=== PATIENT | female | born 1985 | race Caucasian/White ===

== ENCOUNTER 2019-03-12 13:32 | Emergency (ER) | payer OTHER, SELFPAY ==
[2019-03-12 13:34] VITALS: BP 143/87; PULSE 104; RESP 16; TEMP 36.7; O2SAT 99; BMI 26.3
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
[2019-03-12 14:19] VITALS: RESP 15
== END 2019-03-12 14:20 | disposition home or self-care (01) ==
LOC: ED 14:08
PROVIDERS: Emergency Provider Emergency Medicine; Family Provider Internal Medicine; PCP Internal Medicine
DX: S19.9XXA Unspecified injury of neck, initial encounter (principal); F17.200 Nicotine dependence, unspecified, uncomplicated; Y04.2XXA Assault by strike against or bumped into by another person, initial encounter; Y93.89 Activity, other specified; Y92.89 Other specified places as the place of occurrence of the external cause; Y99.8 Other external cause status
CPT/HCPCS: 99282

== ENCOUNTER 2019-10-06 10:51 | Emergency (ER) | payer OTHER, SELFPAY ==
[2019-10-06 10:51] VITALS: BP 111/73; PULSE 119; RESP 18; TEMP 36.4; O2SAT 97; BMI 28.1
--- NOTE | 2019-10-06 11:16 | ED.VIS.GEN ---
History of Present Illness Chief Complaint: General Illness Detail of Chief Complaint: vomiting Informant: Patient Onset: Days - 4- Context: Gradual Onset Timing: Continuous Quality: nonbilious, nonbloody Current Severity: Severe Maximum Severity: Severe Worsened by: eating or drinking fluids Relieved by: nothing Associated Symptoms: diarrhea initially, but that resolved. cough x 2wks. subj fevers/chills. Narrative: Patient also feeling lightheaded, no near syncope or syncope. Feeling malaised. She is still able to get around. Saw her doctor yesterday for the same thing, had some tests done that was blood and urine, she does not know any of the specifics. They called her today and she was vomiting a lot overnight having difficulty keeping down fluids so they advised that she come to the emergency department. She denies any recent travel out of the area. She denies being in contact with anybody with known coronavirus infection, she presents during [facility] [place] [address] emergency declaration. She is a little upper abdominal soreness from vomiting but otherwise no abdominal pain. No chest pain or shortness of breath. Her cough is occasionally productive of some yellow or light brown sputum, no blood. No leg pain or swelling. No history of DVT or PE, no medical history she is healthy. Denies . No vaginal symptoms. Denies any suspicion for food poisoning. Past Medical History - Allergies and Home Meds Allergies/Adverse Reactions: Allergies No Known Allergies Allergy (Verified 10/06/19 10:54) Primary Care Physician: Nini Rutledge MD [Primary Care Provider] - Past Medical History: None Surgical History: - - Ovarian cyst Smoking Status: Current every day smoker Drugs: None Review of Systems General: Reports: Chills, Fever, Malaise, Subjective. Denies: Sweats Eyes: Denies: Visual changes - bilaterally, Diplopia ENT: Denies: Bilateral ear pain, Rhinorrhea, Sore throat Cardiovascular: Denies: Chest pain, Palpitations Respiratory: Reports: Cough, Sputum. Denies: Dyspnea, Dyspnea on exertion, Orthopnea Gastrointestinal: Reports: Nausea, Vomiting, Diarrhea - Resolved. See HPI.. Denies: Abdominal pain, Melena, Hematochezia Genitourinary: Reports: - - Decreased urination.. Denies: Dysuria, Hematuria, Frequency Musculoskeletal: Denies: Neck pain, Back pain, Swelling, Extremity Pain Skin: Denies: Rash, Wounds Neurological: Denies: Headache, Weakness, Numbness Physical Exam Vital Signs/Narrative: Vital Signs Temp Pulse Resp BP Pulse Ox 10/06/19 10:51 97.6 F L 119 H 18 111/73 97 Inital Vital Signs reviewed: Yes General: Well nourished, Well developed, No Acute Distress Head: Normocephalic, Atraumatic Eyes: Perrl, EOMI ENT: Moist mucous membranes, No rhinorrhea, TM's clear Neck: Supple, Nontender, No lymphadenopathy Cardiovascular: Regular rate, Regular rhythm, No murmurs, Tachycardia - Mild Respiratory: No distress, CTA bilaterally, Chest nontender Abdomen: Soft, Nontender, Nondistended, Normal bowel sounds Back: Nontender, Normal Inspection. Negative for: CVA tenderness Extremities: Nontender, No edema Skin: Normal color, No rash, No Trauma Neurological: Alert, Oriented x3, Cranial nerves II-XII grossly intact, Normal Strength, Normal Sensation Psychological: Normal affect, Normal Mood Diagnostic/Tx/Re-eval Impressions Chest X-Ray 10/06/19 12:40 IMPRESSION: Normal x-ray examination of the chest. Electronically Signed: Horacio Sheron, at 13:07 EDT , Service support , 10/06/19 12:40 Chest 1 View (Portable) [RAD] Stat Laboratory Results 10/06/19 10/06/19 10/06/19 12:00 12:00 13:40 WBC 9.8 RBC 5.16 Hgb 16.2 H Hct 48.1 H MCV 93.2 MCH 31.4 MCHC 33.7 RDW Std Deviation 39.8 RDW Coeff of Jarvis 11.5 L Plt Count 204 MPV 9.6 Immature Gran % (Auto) 0.300 Neut % (Auto) 71.8 H Lymph % (Auto) 21.6 [place] % (Auto) 5.3 Eos % (Auto) 0.7 Baso % (Auto) 0.3 Absolute Neuts (auto) 7.1 Absolute Lymphs (auto) 2.12 Nucleated RBC % 0 Sodium 140 Potassium 4.0 Chloride 104 Carbon Dioxide 28.0 Anion Gap 8 BUN 14 Creatinine 0.72 Estim Creat Clear Calc 109.08 Est GFR (MDRD) Af Amer 120 Est GFR (MDRD) Non-Af 99 BUN/Creatinine Ratio 19.4 Glucose 85 Calcium 9.6 Troponin I < 0.015 Urine Color Urine Clarity Urine pH Ur Specific [place] Urine Protein Urine Glucose (UA) Urine Ketones Urine Occult Blood Urine Nitrite Urine Bilirubin Urine Urobilinogen Ur Leukocyte Esterase Urine RBC Urine WBC Ur Squamous Epith Cells Amorphous Sediment Urine Bacteria Urine Mucus Urine Test Negative 10/06/19 13:40 WBC RBC Hgb Hct MCV MCH MCHC RDW Std Deviation RDW Coeff of Jarvis Plt Count MPV Immature Gran % (Auto) Neut % (Auto) Lymph % (Auto) [place] % (Auto) Eos % (Auto) Baso % (Auto) Absolute Neuts (auto) Absolute Lymphs (auto) Nucleated RBC % Sodium Potassium Chloride Carbon Dioxide Anion Gap BUN Creatinine Estim Creat Clear Calc Est GFR (MDRD) Af Amer Est GFR (MDRD) Non-Af BUN/Creatinine Ratio Glucose Calcium Troponin I Urine Color Yellow Urine Clarity Sl. Cloudy Urine pH 8.0 Ur Specific [place] 1.015 Urine Protein 15 H Urine Glucose (UA) Normal Urine Ketones 150 H Urine Occult Blood 25 H Urine Nitrite Negative Urine Bilirubin Negative Urine Urobilinogen 8 H Ur Leukocyte Esterase 25 H Urine RBC 0-5 SEEN Urine WBC 0-5 SEEN Ur Squamous Epith Cells 0-5 SEEN Amorphous Sediment 1+ PHOS Urine Bacteria 1+ Urine Mucus 0 SEEN Urine Test - Medical Decision Making Patient was treated with a liter of IV fluid and IV Zofran. She is feeling better on reevaluation tolerating oral fluids. Her labs are reassuringly unremarkable. Her hemoglobin is a little high over 16, this may be due to to some mild dehydration. She does not have significant prerenal azotemia. Urine is unremarkable showing traces of several tests, is negative, chest x-ray unremarkable. She is feeling better and I think she is stable for discharge home. This is foodborne illness, supportive care and hydration would be advised. Since she is no longer having diarrhea there would be no way to definitively test for that and rule it in or out. Advised follow-up with her doctor if she is not feeling any better over the weekend, she is asking for something different for nausea since she was trying some leftover Zofran at home and it was not helping. Gave her a Phenergan dose due to some residual nausea and a prescription for that as well as a work note. ED Disposition - Plan for ED Patient: Disposition: Home or Assisted Living Diagnosis: Vomiting, Mild dehydration Instructions: ED Dehydration Adult, ED Nausea Vomiting Adult Prescriptions: proMETHazine tablet [Phenergan tablet] 25 mg PO Q4H PRN PRN #20 tab PRN Reason: Nausea Transmission Status: Pending to [id number] Referrals: Nini Rutledge MD [Primary Care Provider] - 3-5 Days if not improving
[2019-10-06 12:11] LABS: Absolute Lymphocyte Count 2.12 X10^3/uL (0.83-4.51); Absolute Neutrophil Count 7.1 X10^3/uL (2.0-7.7); Basophil# 0.03 X10^3/uL; Basophil% 0.3 % (0-1); Eosinophil# 0.07 X10^3/uL; Eosinophils% 0.7 % (0-5); Hematocrit 48.1 % (37-47); Hemoglobin 16.2 g/dL (12.0-15.0); Lymphocyte # 2.12 X10^3/ul (4.0); Lymphocyte % 21.6 % (19-41); Mean Corp Hgb Conc 33.7 g/dL (32-36); Mean Corpuscular Hgb 31.4 pg (27.0-32.0); Mean Corpuscular Volume 93.2 fL (81-99); Mean Platelet Vol. 9.6 fl (6.2-12.0); Monocyte# 0.52 X10^3/uL; Monocyte% 5.3 % (0-10); NRBC Flagged by Analyzer 0 % (0-5); Neutrophil # 7.06 X10^3/uL (2.7-7.7); Neutrophil % 71.8 % (47-70); Platelet Count 204 K/mm3 (150-450); RBC Distribution Width CV 11.5 % (11.6-14.6); RBC Distribution Width SD 39.8 fl (35.1-43.9); Red Blood Count 5.16 M/mm3 (4.2-5.4); White Blood Count 9.8 K/mm3 (4.4-11.0)
[2019-10-06 12:23] VITALS: BP 111/73; PULSE 119; RESP 18; TEMP 36.4; O2SAT 97
[2019-10-06] MEDS: 0.9% Normal Saline 1,000 ML 999 ML IV (12:25)
[2019-10-06] MEDS: Ondansetron 4 MG/2 ML Vial IV (12:26)
[2019-10-06 12:27] LABS: Anion Gap 8 (5-15); BUN 14 mg/dL (7-18); BUN/Creat Ratio 19.4 RATIO (10-20); Calcium,Total 9.6 mg/dL (8.5-10.1); Chloride 104 mmol/L (98-107); Creatinine, Serum 0.72 mg/dL (0.55-1.02); EST Glomerular Filtration Rate 99 mL/min (>60); Est Glom Filt Rate - Afr Amer 120 mL/min (>60); Estimated Creatinine Clearance 109.08 ml/min; Glucose 85 mg/dL (74-106); Sodium Level 140 mmol/L (136-145)
--- NOTE | 2019-10-06 12:40 | RAD_ITS ---
STUDY: X-RAY CHEST REASON FOR EXAM: Female, 33 years old. NAUSEA, VOMITING, FATIGUE, COUGH, CHILLS, HEADACHE AND FEVER x4 DAYS TECHNIQUE: Single AP portable view of the chest. COMPARISON: Comparison is made with prior examination dated June 01, 2013. FINDINGS: EKG electrodes are seen. The lungs are clear and expanded. There is no demonstrated pleural abnormality. Normal size heart. Normal mediastinum and vernon. Normal visualized pulmonary arteries. Normal visualized aortic arch and descending thoracic aorta. Normal visualized thoracic spine. Normal visualized ribs, clavicles, and shoulders. There is no demonstrated abnormality of the visualized soft tissue structures of the upper abdomen. RAD/Chest 1 View (Portable) IMPRESSION: Normal x-ray examination of the chest. Electronically Signed: Horacio Holbrook, at 13:07 EDT , Service support ,
[2019-10-06 13:07] VITALS: BP 105/68; PULSE 64; RESP 14; O2SAT 96
[2019-10-06 13:56] LABS: Mucous, Urine 0 SEEN /hpf (<or=2+)
[2019-10-06 14:06] LABS: Internal QC Validated? YES +Cl - CLEAR BKGD; Pregnancy, Urine Negative Negative
[2019-10-06 14:11] LABS: Color, Urine Yellow (Yellow); Glucose, Dipstick Normal (Normal); Leukocyte Esterase-Dipstick 25 /ul (Negative); Nitrite-Dipstick Negative (Negative); Occult Blood-Urine 25 /ul (Negative); Protein-Dipstick 15 mg/dl (Negative); Specific Gravity, Urine 1.015 (1.002-1.030); Urine Bilirubin Dipstick Negative (Negative); Urine Clarity Sl. Cloudy (Clear); Urine Urobilinogen 8 mg/dl (Normal)
[2019-10-06 14:12] VITALS: PULSE 63; RESP 12; O2SAT 96
[2019-10-06 14:21] LABS: Ketone-Dipstick 150 mg/dl (Negative)
[2019-10-06 14:23] LABS: Squamous Epithelial Cells - UA 0-5 SEEN /hpf (5-10)
[2019-10-06 14:24] LABS: Amorphous Sediment 1+ PHOS; Bacteria 1+ /hpf (None Seen); Red Blood Cells-Urine 0-5 SEEN /hpf (0-5); White Blood Cells 0-5 SEEN /hpf (0-5)
[2019-10-06] MEDS: proMETHazine 25 MG Tablet PO (14:52)
== END 2019-10-06 14:54 | disposition home or self-care (01) ==
PROVIDERS: Emergency Provider Emergency Medicine; PCP Internal Medicine
DX: E86.0 Dehydration (principal); R11.2 Nausea with vomiting, unspecified; F17.200 Nicotine dependence, unspecified, uncomplicated
CPT/HCPCS: 71045; 80048; 81001; 81025; 84484; 85025; 96361; 96374; 99284; J7030; J2405

== ENCOUNTER 2020-11-06 16:58 | Emergency (ER) | payer MEDICAID, SELFPAY ==
[2020-11-06 17:00] VITALS: BP 113/73; PULSE 97; RESP 16; TEMP 36.2; O2SAT 97; BMI 23.3
[2020-11-06] MEDS: Smz/Tmp Ds Tablet 1 TABLET PO (18:08)
[2020-11-06] MEDS: Cephalexin 250 MG Capsule 500 MG PO (18:08)
--- NOTE | 2020-11-06 20:53 | EX.ED.DYSGE1 ---
HPI History of Present Illness Chief Complaint: Lower Extremity Injury Narrative Narrative: 35-year-old female presenting with left foot erythema and swelling. She states she was on a table the other day at work and slipped and fell scratching the back of her foot. Since that time she has had some redness which is spread around her foot. There are some mild swelling. She states this is very painful. She is able to ambulate. Patient has not had any systemic signs or symptoms. Patient went to urgent care and was sent to the ER for evaluation. PFSH PFSH Home Medications bacitracin 1 applic TOPICAL BID #30 g 11/06/20 [Rx Last Taken Unknown] cephalexin 500 mg PO Q6 #40 capsule 11/06/20 [Rx Last Taken Unknown] sulfamethoxazole-trimethoprim [Bactrim DS] 1 tab PO Q12H #20 tab 11/06/20 [Rx Last Taken Unknown] Allergy/AdvReac Type Severity Reaction Status Date / Time varenicline [From Chantix] Allergy Other Verified 11/06/20 17:00 amoxicillin AdvReac Nausea Verified 11/06/20 17:00 Social History Smoking Status: Current every day smoker tobacco type: cigarettes ROS ROS ED Constitutional Constitutional ED: Denies chills, fever(s) or subjective Eyes Eyes: Denies blurry vision or change in vision ENT ENT ED: Denies rhinorrhea or sore throat Cardiovascular Cardiovascular: Denies chest pain or palpitations Respiratory/Chest Respiratory/Chest: Denies cough or dyspnea Gastrointestinal Gastrointestinal: Denies abdominal pain or nausea Genitourinary Genitourinary ED: Denies dysuria or hematuria Integumentary Reports other Details: Erythema and rash over right foot. ; Denies abscess Neurologic Neurologic: Denies headache(s) or weakness EXAM Physical Exam Const Vital Signs: 11/06/20 17:00 Temperature 97.1 F L Temperature Source Temporal Pulse Rate 97 Respiratory Rate 16 Blood Pressure 113/73 Blood Pressure Mean 86 Pulse Ox 97 Oxygen Delivery Method Room Air HEENT Reports moist mucous membranes Negative for trauma Eyes PERRL and EOMs intact bilaterally Resp normal respiratory effort and clear to auscultation bilaterally Cardio regular rate and regular rhythm Neuro oriented x3 Sensorium / Orientation: alert Skin Skin Narrative: Superficial abrasion over the right posterior heel with mild erythema and swelling adjacent to this area. There is no significant induration. No bony tenderness. MDM MDM MDM Narrative Medical decision making narrative: Patient presents for cellulitic change on her foot. She was sent from urgent care because they felt she needed blood work. She has not been on antibiotics yet. Her vital signs are stable and she is afebrile. She has no systemic signs or symptoms. I do not believe she needs blood work and imaging. Patient will be started on antibiotics and given return precautions. Dressing was placed over the patient's wound and she is stable for discharge. Impression: 1. Cellulitis right foot Discharge Plan Triage Chief Complaint: Lower Extremity Injury ED Provider: Fredrick Galeana Dx/Rx/DC Orders Instructions: Cellulitis Prescriptions: New sulfamethoxazole-trimethoprim [Bactrim DS] 800-160 mg tablet 1 tab PO Q12H Qty: 20 RF: 0 cephalexin 500 mg capsule 500 mg PO Q6 Qty: 40 RF: 0 bacitracin 500 unit/gram ointment 1 applic topical BID Qty: 30 RF: 0 Primary Care Provider: Nini Rutledge Referrals: Nini Rutledge MD [Primary Care Provider] - Disposition Disposition: Home, Self Care Discharge Date/Time: 11/06/20 18:20
== END 2020-11-06 18:20 | disposition home or self-care (01) ==
PROVIDERS: Emergency Provider Student in an Organized Health Care Education/Training Program; PCP Internal Medicine
DX: L03.115 Cellulitis of right lower limb (principal); F17.210 Nicotine dependence, cigarettes, uncomplicated
CPT/HCPCS: 99283

== ENCOUNTER 2021-01-03 16:27 | Inpatient (IN) | payer MEDICAID, SELFPAY ==
[2021-01-03 16:28] VITALS: BP 120/78; PULSE 86; RESP 18; TEMP 36.3; O2SAT 99; BMI 23.3
--- NOTE | 2021-01-03 18:02 | EDS_ITS ---
HPI History of Present Illness Chief Complaint: Substance Abuse Informant: patient and friend Onset/Context/Timing Onset: Today Context: Gradual Onset Timing: Continuous Worsened by: Nothing Relieved by: Nothing Associated Symptoms Associated Symptoms: Positive for vomiting*, diarrhea* and fever*; Negative for seizure, tremor, palpatations, suicidal ideation and homicidal ideation Narrative Narrative: Patient presents requesting detox from fentanyl. Patient admits to using IV fentanyl. Patient states she also snorts fentanyl. Patient states she uses approximately 1 g/day. Patient states her last use was approximately 2 hours prior to arrival. Patient states she went to detox proximally 1-1/2 years ago in [place]. Patient admits to some vomiting and diarrhea. Patient admits to subjective fevers. Patient states she also uses IV methamphetamine. [facility] Medical History (Updated 01/03/21 @ 19:[address] Alexander Gonzalez DO) Drug abuse Home Medications bacitracin 1 applic TOPICAL BID #30 g 11/06/20 [Rx Last Taken Unknown] cephalexin 500 mg PO Q6 #40 capsule 11/06/20 [Rx Last Taken Unknown] sulfamethoxazole-trimethoprim [Bactrim DS] 1 tab PO Q12H #20 tab 11/06/20 [Rx Last Taken Unknown] Allergy/AdvReac Type Severity Reaction Status Date / Time varenicline [From Chantix] Allergy Other Verified 01/03/21 16:28 amoxicillin AdvReac Nausea Verified 01/03/21 16:28 Surgical History (Updated 01/03/21 @ 18:[address] Alexander Gonzalez DO) Hx of tonsillectomy Social History Smoking Status: Current every day smoker tobacco type: cigarettes ROS ROS ED Constitutional Constitutional ED: Reports fever(s) and subjective; Denies chills Eyes Eyes: Reports blurry vision; Denies diplopia ENT ENT ED: Denies rhinorrhea or sore throat Cardiovascular Cardiovascular: Denies chest pain or palpitations Respiratory/Chest Respiratory/Chest: Denies cough or dyspnea Gastrointestinal Gastrointestinal: Reports nausea and vomiting Genitourinary Genitourinary ED: Denies dysuria or hematuria Musculoskeletal Musculoskeletal: Denies back pain or neck pain Integumentary Denies abscess or rash Neurologic Neurologic: Denies headache(s) or weakness Allergic/Immunologic Allergic/Immunologic ED: Denies mouth swelling or urticaria EXAM Physical Exam Const Vital Signs: 01/03/21 16:28 01/03/21 19:11 Temperature 97.3 F L Temperature Source Temporal Pulse Rate 86 Respiratory Rate 18 14 Blood Pressure 120/78 Blood Pressure Mean 92 Pulse Ox 99 Oxygen Delivery Method Room Air Positive well nourished, well developed and unkempt General Appearance ED: unkempt and well developed HEENT Reports moist mucous membranes Neck supple and no JVD Resp normal respiratory effort and clear to auscultation bilaterally Cardio regular rate and regular rhythm GI soft to palpation, non-tender and non-distended Neuro oriented x3, CN's II-XII intact bilaterally and no sensory deficits noted Sensorium / Orientation: alert Psych Appearance: unkempt MDM MDM MDM Narrative Medical decision making narrative: CBC and comprehensive metabolic profile were within normal limits. Serum alcohol level was normal. Lipase was normal. Serum hCG was negative. Urine toxin was ordered and is pending. Case was discussed with the hospitalist. She will admit the patient for detox. Patient understood and was agreeable with the plan. All questions were answered. Lab Data Attestation: I reviewed the patient's lab results. Labs: Laboratory Results - last 24 hr 01/03/21 01/03/21 01/03/21 18:40 18:40 18:40 WBC 5.3 RBC 4.00 L Hgb 11.9 L Hct 37.2 MCV 93.0 MCH 29.8 MCHC 32.0 RDW Std Deviation 42.4 RDW Coeff of Jarvis 12.3 Plt Count 172 MPV 9.5 Immature Gran % (Auto) 0.000 Neut % (Auto) 37.6 L Lymph % (Auto) 53.4 H [place] % (Auto) 6.7 Eos % (Auto) 1.7 Baso % (Auto) 0.6 Absolute Neuts (auto) 2.0 Absolute Lymphs (auto) 2.81 Nucleated RBC % 0 Sodium 141 Potassium 4.0 Chloride 107 Carbon Dioxide 30.0 Anion Gap 4 L BUN 17 Creatinine 0.84 Estim Creat Clear Calc 91.77 Est GFR (MDRD) Af Amer 99 Est GFR (MDRD) Non-Af 82 BUN/Creatinine Ratio 20.1 H Glucose 149 H Calcium 8.5 Total Bilirubin 0.20 AST 13 L ALT 23 Alkaline Phosphatase 68 Total Protein 6.8 Albumin 3.7 Globulin 3.1 Albumin/Globulin Ratio 1.2 Lipase 29 L Serum , Qual Ethyl Alcohol < 3.0 01/03/21 18:40 WBC RBC Hgb Hct MCV MCH MCHC RDW Std Deviation RDW Coeff of Jarvis Plt Count MPV Immature Gran % (Auto) Neut % (Auto) Lymph % (Auto) [place] % (Auto) Eos % (Auto) Baso % (Auto) Absolute Neuts (auto) Absolute Lymphs (auto) Nucleated RBC % Sodium Potassium Chloride Carbon Dioxide Anion Gap BUN Creatinine Estim Creat Clear Calc Est GFR (MDRD) Af Amer Est GFR (MDRD) Non-Af BUN/Creatinine Ratio Glucose Calcium Total Bilirubin AST ALT Alkaline Phosphatase Total Protein Albumin Globulin Albumin/Globulin Ratio Lipase Serum , Qual NEGATIVE Ethyl Alcohol Treatment and Re-Evaluation Vital Sign Attestation:: Vital signs were reviewed prior to admission. They are stable. Discharge Plan Triage Chief Complaint: Substance Abuse ED Provider: Alexander Gonzalez Dx/Rx/DC Orders Clinical Impression: Opiate withdrawal Prescriptions: No Action sulfamethoxazole-trimethoprim [Bactrim DS] 800-160 mg tablet 1 tab PO Q12H Qty: 20 RF: 0 cephalexin 500 mg capsule 500 mg PO Q6 Qty: 40 RF: 0 bacitracin 500 unit/gram ointment 1 applic topical BID Qty: 30 RF: 0 Primary Care Provider: Care Physician,No Primary Referrals: Care Physician,No Primary [Primary Care Provider] - Disposition Disposition: Acute Care [facility]
--- NOTE | 2021-01-03 18:30 | CM.ED ---
Addendum entered by Ebony Oates 01/03/21 20:45: Call to Treatment NavigatorKeila. Updated on patient's admission to [facility]. Keila to be in tomorrow to complete assessments. Original Note: SOCIAL WORK Referral Source: Self-referral Reason for Consult: Substance Abuse- detox from fentanyl Met with patient and patient's boyfriend in room. Patient uses 1g of fentanyl/day. Patient's last use was at 3:00p. Patient reports snorts fentanyl and shoots meth. Patient's boyfriend states he would also like to complete detox and will be coming back this evening. Boyfriend states patient is to go to the [facility] on Wednesday. Education provided on [facility]. Patient voiced no questions. This worker to update Treatment Navigator upon admission. 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
[2021-01-03 19:02] LABS: Internal QC Validated? YES +Cl - CLEAR BKGD; Pregnancy, Serum, hCG Quali. NEGATIVE Negative
[2021-01-03 19:10] LABS: Absolute Lymphocyte Count 2.81 X10^3/uL (0.83-4.51); Basophil# 0.03 X10^3/uL; Basophil% 0.6 % (0-1); Eosinophil# 0.09 X10^3/uL; Eosinophils% 1.7 % (0-5); Hematocrit 37.2 % (37-47); Hemoglobin 11.9 g/dL (12.0-15.0); Lymphocyte # 2.81 X10^3/ul (0.83-4.51); Lymphocyte % 53.4 % (19-41); Mean Corpuscular Hgb 29.8 pg (27.0-32.0); Mean Platelet Vol. 9.5 fl (6.2-12.0); Monocyte# 0.35 X10^3/uL; Monocyte% 6.7 % (0-10); NRBC Flagged by Analyzer 0 % (0-5); Neutrophil # 1.98 X10^3/uL (2.7-7.7); Neutrophil % 37.6 % (47-70); Platelet Count 172 K/mm3 (150-450); RBC Distribution Width CV 12.3 % (11.6-14.6); RBC Distribution Width SD 42.4 fl (35.1-43.9); White Blood Count 5.3 K/mm3 (4.4-11.0)
[2021-01-03 19:11] VITALS: RESP 14
[2021-01-03 19:11] LABS: ALB/GLOB Ratio 1.2 RATIO (0.9-2.4); AST(SGOT) 13 U/L (15-37); Alanine Aminotransfer ALT/SGPT 23 U/L (13-56); Albumin, Serum 3.7 g/dL (3.2-5.0); Alkaline Phosphatase 68 U/L (45-117); Anion Gap 4 (5-15); BUN 17 mg/dL (7-18); BUN/Creat Ratio 20.1 RATIO (10-20); Calcium,Total 8.5 mg/dL (8.5-10.1); Chloride 107 mmol/L (98-107); Creatinine, Serum 0.84 mg/dL (0.55-1.02); EST Glomerular Filtration Rate 82 mL/min (>60); Est Glom Filt Rate - Afr Amer 99 mL/min (>60); Estimated Creatinine Clearance 91.77 ml/min; Globulin 3.1 g/dL (2.2-4.2); Glucose 149 mg/dL (74-106); Lipase 29 U/L (73-393); Protein, Total 6.8 g/dL (6.4-8.2); Sodium Level 141 mmol/L (136-145)
[2021-01-03 19:16] LABS: Alcohol, Blood (Medical)-Serum < 3.0 mg/dL
--- NOTE | 2021-01-03 20:12 | HP.PCM.HOS_ITS ---
HPI - General General Date of Admission: 01/03/21 Date of Service: 01/03/21 Chief Complaint: Acute Opiate Withdrawal HPI Narrative The patient is a 35 y/o F w/ PMHx: Polysubstance abuse (Fentanyl (snorted/IV with 1 gm daily), methamphetamine (snorted, usually daily), Tobacco use who presents to the [facility] ED on 01/03/21 w/ noted acute opiate withdrawal onset starting on day of presentation following last dose 3:30 pm earlier in the day with abdominal pain, generalized body aches, severe fatigue, restlessness, sweating. Patient interested in attaining clean status. She notes that both her and her spouse use and they are both trying to become clean. The do not have any children she notes. She believes her is attempting to seek care at an alternate facility for substance abuse with opiate withdrawal. She has not been evaluated/tested for HIV, hepatitis but notes being amenable. Work-up in the ED included T 98, heart rate 70, BP 108/67, respiratory rate 10, 94% on room air, CBC with WBC 5.3, hemoglobin 11.9, platelet 172 without marked shift, CMP with glucose 149 otherwise not marked appearing, lipase 29, negative test, ethyl alcohol less than 3, UDS was not obtained per ED, rapid Covid testing negative. [facility] Medical History Drug abuse Fentanyl use disorder, moderate Methamphetamine abuse Tobacco use Home Medications NK 01/03/21 [History Last Taken Unknown] Allergy/AdvReac Type Severity Reaction Status Date / Time varenicline [From Chantix] Allergy Other Verified 01/03/21 16:28 amoxicillin AdvReac Nausea Verified 01/03/21 16:28 Family History (Updated 01/04/21 @ 01:[address] Shavonne Rodriguez MD) Mother Substance abuse Pain pill abuse Alcohol abuse no significant family history (Patient denies any marked paternal family history including HD, DM, CA.) Surgical History (Updated 01/04/21 @ 01:[address] Shavonne Rodriguez MD) H/O cone biopsy of cervix Hx of tonsillectomy S/P ovarian cystectomy Social History (Updated 01/04/21 @ 01:[address] Shavonne Rodriguez MD) household members: spouse Smoking Status: Current every day smoker tobacco type: cigarettes Smoking packs per day: 0.5 Smoking cigarettes per day: 10.0 alcohol intake: current alcohol intake frequency: a few times a week substance use type: amphetamines, IV drugs and other details: Fentanyl snorted and injected, usually 1 gm daily. ROS ROS Narrative Admission Review of Systems: CONSTITUTIONAL: No weight loss, fever, chills, + weakness or fatigue. HEENT: Eyes: No visual loss, blurred vision, double vision or yellow sclerae. Ears, Nose, Throat: + Rhinorrhea. No hearing loss, sneezing or sore throat. SKIN: No rash or itching, lesions, wounds. CARDIOVASCULAR: No chest pain, chest pressure or chest discomfort, palpitations, edema, orthopnea, syncopal events. RESPIRATORY: No shortness of breath, cough or sputum, wheezing, hemoptysis. GASTROINTESTINAL: + anorexia, nausea without vomiting, abdominal pain, No melena, BRBPR. GENITOURINARY: No dysuria, frequency, urgency or retention. NEUROLOGICAL: No headache, dizziness, syncope, paralysis, ataxia, numbness or tingling in the extremities, focal weakness, change in bowel or bladder control, seizure. MUSCULOSKELETAL: + muscle, back pain, joint pain or stiffness. HEMATOLOGIC: + anemia, bleeding or bruising. LYMPHATICS: No enlarged nodes. No history of splenectomy. PSYCHIATRIC: No history of depression or anxiety. ENDOCRINOLOGIC: No reports of sweating, cold or heat intolerance. No polyuria or polydipsia. ALLERGIES: No history of asthma, hives, eczema or rhinitis. Vital Signs Vital Signs Vital Signs: 01/03/21 16:28 01/03/21 19:11 Temperature 97.3 F L Temperature Source Temporal Pulse Rate 86 Respiratory Rate 18 14 Blood Pressure 120/78 Blood Pressure Mean 92 Pulse Ox 99 Oxygen Delivery Method Room Air Weight Weight: 148 lb 12.992 oz Body Mass Index (BMI) 23.3 Physical Exam Narrative Physical Examination: General: Awake, alert, oriented x 3 and cooperative, seated upright in the ED bed, extremely fatigued. Skin: Normal color, normal turgor, no icterus, no cyanosis except appearance of extremity track rick. HEENT: AT/NC, EOMI, PERRLA, dry MM, no carotid bruits or JVD noted. Lungs: CTA bilaterally, moderate effort, mild decrease BL bases, no rales, ronchi or wheezing. Heart: Regular rate and rhythm; no gallop, rub audible. Abdomen: Soft, mild generalized discomfort with palpation, ND, hyperactive BS, no HSM. Extremities: No cyanosis, clubbing, or edema. Neurological: Patient awake, alert, oriented as noted, cognitive function intact; pupils equally reactive to light and accommodation, cranial nerves II- XII grossly normal, moving all 4 extremities, no focal deficits, strength mildly to moderately global decrease, extremely fatigued, moving legs frequently however. Psychiatric: Affect appears fatigued, mildly restless, no acute evidence of depressive or anxiety feelings. Results Lab / Micro Data Result Diagrams: 01/03/21 18:40 01/03/21 18:40 Labs: Laboratory Results - last 24 hr 01/03/21 18:40: WBC 5.3, RBC 4.00 L, Hgb 11.9 L, Hct 37.2, MCV 93.0, MCH 29.8, MCHC 32.0, RDW Std Deviation 42.4, RDW Coeff of Jarvis 12.3, Plt Count 172, MPV 9.5, Immature Gran % (Auto) 0.000, Neut % (Auto) 37.6 L, Lymph % (Auto) 53.4 H, [place] % (Auto) 6.7, Eos % (Auto) 1.7, Baso % (Auto) 0.6, Absolute Neuts (auto) 2.0, Absolute Lymphs (auto) 2.81, Nucleated RBC % 0 01/03/21 18:40: Sodium 141, Potassium 4.0, Chloride 107, Carbon Dioxide 30.0, Anion Gap 4 L, BUN 17, Creatinine 0.84, Estim Creat Clear Calc 91.77, Est GFR (MDRD) Af Amer 99, Est GFR (MDRD) Non-Af 82, BUN/Creatinine Ratio 20.1 H, Glucose 149 H, Calcium 8.5, Total Bilirubin 0.20, AST 13 L, ALT 23, Alkaline Phosphatase 68, Total Protein 6.8, Albumin 3.7, Globulin 3.1, Albumin/Globulin Ratio 1.2, Lipase 29 L 01/03/21 18:40: Ethyl Alcohol < 3.0 01/03/21 18:40: Serum , Qual NEGATIVE Assessment & Plan Assessment/Plan (1) Opiate withdrawal: PLAN: The patient is a 35 y/o F w/ PMHx: Polysubstance abuse (Fentanyl (snorted/IV with 1 gm daily), methamphetamine (snorted, usually daily), Tobacco use who presents to the [facility] ED on 01/03/21 w/ noted acute opiate withdrawal. 1. Acute Opiate Withdrawal: Will admit to [facility], routine labs including CBC, CMP obtained in the ED, will initiate and continue on protocol with tapering course of Subutex, as needed tylenol, ibuprofen, bowel regimen, gabapentin, Bentyl, Vistaril, methocarbamol, clonidine, PRN nightly trazodone for insomnia, IV fluids, IV antiemetics. Will request consultation with case management for transition to next level of rehabilitation care. 2. Polysubstance Abuse, IVDA Hx: Patient amenable to HIV and hepatitis testing and notes that she has never been evaluated. Patient currently not candidate for hep C treatment currently as needs to be clean, sober x 6 months, documented attendance NA or AA meetings, counseling and ongoing negative drug screens. 3. Hyperglycemia: ED CMP with glucose 149, possibly stress response, will obtain hemoglobin A1c to be cautious. 4. Normocytic anemia: Admission hemoglobin 11.9, MCV 93, patient denies any specific history, will encourage outpatient follow-up for further evaluation. 5. Tobacco Abuse: Encouraged cessation, inpatient consultation per RT, NR if desired. 6. DVT prophylaxis: Low risk, encourage ambulation. Charges/Coding Visit Charges Inpatient E&M: 76338 Init Hosp L2
[2021-01-03 20:36] VITALS: BP 108/67; PULSE 70; RESP 10; TEMP 36.6; O2SAT 94
[2021-01-03 22:08] VITALS: BMI 23.3
[2021-01-03 22:18] VITALS: BP 116/65; PULSE 68; RESP 18; TEMP 36.4; O2SAT 100
[2021-01-03 22:25] LABS: HIV - WCH Non-Reactive (Nonreactive)
--- NOTE | 2021-01-03 23:07 | PCS.PANDOC ---
PANDEMIC DOCUMENTATION INITIATED: Date: 12/23/2020 Time: 190
--- NOTE | 2021-01-03 23:49 | NURSING ---
pt refused IV placement and IV fluid order. MD briceno and D/c'd
[2021-01-04 02:30] LABS: Hemoglobin A1c 5.2 % (3.8-5.6)
[2021-01-04 03:52] VITALS: BP 110/66; PULSE 83; RESP 18; TEMP 36.6; O2SAT 94
[2021-01-04] MEDS: Acetaminophen 325 MG Tablet 650 MG PO (04:03)
[2021-01-04] MEDS: Methocarbamol 750 MG Tablet 1500 MG PO ×3 (04:04→22:28)
[2021-01-04 04:16] LABS: Mucous, Urine 0 SEEN /hpf (<or=2+); Red Blood Cells-Urine 0 SEEN /hpf (0-5)
[2021-01-04 04:18] LABS: Color, Urine Yellow (Yellow); Glucose, Dipstick Normal (Normal); Ketone-Dipstick 5 mg/dl (Negative); Leukocyte Esterase-Dipstick Negative /ul (Negative); Nitrite-Dipstick Negative (Negative); Occult Blood-Urine Negative /ul (Negative); Protein-Dipstick 15 mg/dl (Negative); Urine Bilirubin Dipstick Negative (Negative); Urine Clarity Clear (Clear); Urine Urobilinogen Normal (Normal)
[2021-01-04 04:33] LABS: Bacteria 1+ /hpf (None Seen); Squamous Epithelial Cells - UA 0-5 SEEN /hpf (5-10); White Blood Cells 0-5 SEEN /hpf (0-5)
[2021-01-04 04:34] LABS: Calcium Oxalate Crystals Ur 1+ /hpf (<or=2+)
[2021-01-04 04:48] LABS: Amphetamine Urine VISTA POSITIVE (<1000 ng/mL); Barbiturate Urine VISTA NEGATIVE (< 200 ng/mL); Benzodiazepine Urine VISTA NEGATIVE (< 200 ng/mL); Cocaine Urine VISTA NEGATIVE (< 300 ng/mL); Ecstacy Urine VISTA POSITIVE (< 500 ng/mL); Methadone Urine VISTA NEGATIVE (< 300 ng/mL); PCP Urine VISTA NEGATIVE (< 25 ng/mL); THC Urine VISTA NEGATIVE (< 50 ng/mL); Vista UDS pH Range 5
[2021-01-04 10:00] VITALS: BP 96/68; PULSE 79; RESP 18; TEMP 36.8; O2SAT 97
--- NOTE | 2021-01-04 11:08 | PN.HOSP_ITS ---
Subjective Subjective Patient was admitted last evening for opiate detox. She states she feels pretty rough today complaining of some abdominal pain and nausea, generalized body aches, intermittent diaphoresis, restlessness and severe fatigue. She admits to both intranasal and IV drug use. Objective Data Objective Data Vital Signs: Vital Signs Temp Pulse Resp BP Pulse Ox 98.2 F 79 18 96/68 97 01/04/21 10:00 01/04/21 10:00 01/04/21 10:00 01/04/21 10:00 01/04/21 10:00 Oxygen Delivery Method Room Air Weight: 67.8 kg Body Mass Index (BMI) 23.3 Intake & Output: Intake and Output for Last 24 Hours 01/02/21 01/03/21 01/04/21 23:59 23:59 23:59 Intake Total 300 / 300 Balance 300 / 300 Lab / Micro Data Result Diagrams: 01/03/21 18:40 01/03/21 18:40 Labs: Laboratory Results - last 24 hr 01/03/21 18:40: WBC 5.3, RBC 4.00 L, Hgb 11.9 L, Hct 37.2, MCV 93.0, MCH 29.8, MCHC 32.0, RDW Std Deviation 42.4, RDW Coeff of Jarvis 12.3, Plt Count 172, MPV 9.5, Immature Gran % (Auto) 0.000, Neut % (Auto) 37.6 L, Lymph % (Auto) 53.4 H, [place] % (Auto) 6.7, Eos % (Auto) 1.7, Baso % (Auto) 0.6, Absolute Neuts (auto) 2.0, Absolute Lymphs (auto) 2.81, Nucleated RBC % 0 01/03/21 18:40: Sodium 141, Potassium 4.0, Chloride 107, Carbon Dioxide 30.0, Anion Gap 4 L, BUN 17, Creatinine 0.84, Estim Creat Clear Calc 91.77, Est GFR (MDRD) Af Amer 99, Est GFR (MDRD) Non-Af 82, BUN/Creatinine Ratio 20.1 H, Glucose 149 H, Calcium 8.5, Total Bilirubin 0.20, AST 13 L, ALT 23, Alkaline Phosphatase 68, Total Protein 6.8, Albumin 3.7, Globulin 3.1, Albumin/Globulin Ratio 1.2, Lipase 29 L 01/03/21 18:40: Ethyl Alcohol < 3.0 01/03/21 18:40: Serum , Qual NEGATIVE 01/03/21 18:40: HIV 1&2 Antibody Non-Reactive 01/03/21 18:40: Hemoglobin A1c 5.2 01/04/21 04:00: Urine Color Yellow, Urine Clarity Clear, Urine pH 5.0, Ur Specific [place] 1.030, Urine Protein 15 H, Urine Glucose (UA) Normal, Urine Ketones 5 H, Urine Occult Blood Negative, Urine Nitrite Negative, Urine Bilirubin Negative, Urine Urobilinogen Normal, Ur Leukocyte Esterase Negative, Urine RBC 0 SEEN, Urine WBC 0-5 SEEN, Ur Squamous Epith Cells 0-5 SEEN, Calcium Oxalate Crystal 1+, Urine Bacteria 1+, Urine Mucus 0 SEEN 01/04/21 04:00: Urine Opiates Screen NEGATIVE, Urine Methadone Screen NEGATIVE, Ur Barbiturates Screen NEGATIVE, Ur Phencyclidine Scrn NEGATIVE, Ur Amphetamines Screen POSITIVE H, U Methamphetamin-MDMA POSITIVE H, U Benzodiazepines Scrn NEGATIVE, Urine Cocaine Screen NEGATIVE, U Cannabinoids Screen NEGATIVE, Ur Drug Screen Comment Micro: Microbiology 01/03/21 19:50 Nasal Secretion SARS-CoV-2 Antigen (Rapid) - Final Physical Exam Const Constitutional Narrative: Patient is sleeping upon my arrival but awakens easily, appears mildly diaphoretic and restless, nontoxic-appearing Exam Limitations: no limitations HEENT head/scalp atraumatic Head and Scalp: normocephalic Resp normal respiratory effort, no retractions, no use of accessory muscles and clear to auscultation bilaterally Auscultation: Negative for crackles, rales, rhonchi or wheezes Cardio regular rate, regular rhythm, S1 normal heart sound, S2 normal heart sound, no murmurs, no rub, no gallops, no clicks and no JVD GI normal to inspection, nondistended, normoactive bowel sounds, soft to palpation, non-tender and non-distended Extremity no clubbing, cyanosis or edema Peripheral Pulses: Yes pulses 2+ throughout Psych Psych Narrative: Affect is flat Assessment & Plan Assessment/Plan (1) Opiate withdrawal: PLAN: Acute opiate withdrawal -Patient admits to intranasal/IV fentanyl abuse of approximately 1 g daily -Last dose was 3:30 PM the day prior to admission -Continue buprenorphine taper -Continue supportive medications -180 to evaluate the patient Polysubstance abuse -Patient admits to methamphetamine and fentanyl abuse -Tox screen was positive for amphetamines on admission -HIV is negative -Hepatitis screen is pending Normocytic anemia -Hemoglobin mildly low on presentation at 11.9 with lower range of normal being 12.0 -Recommend outpatient follow-up Hyperglycemia -Blood sugar 149 on presentation but this was not a fasting blood sugar -Obtain A1c in the a.m. Tobacco abuse -Continue cessation -Nicotine replacement DVT prophylaxis -Low risk Charges/Coding Visit Charges Inpatient E&M: 69257 Subs Hosp L2
[2021-01-04] MEDS: hydrOXYzine PAM 25 MG Capsule 50 MG PO ×2 (15:02→22:29)
[2021-01-04] MEDS: Dicyclomine 10 MG Capsule 20 MG PO (15:02)
[2021-01-04] MEDS: Gabapentin 300 MG Capsule PO (15:02)
[2021-01-04 15:11] VITALS: BP 98/64; PULSE 80; RESP 18; TEMP 36.7; O2SAT 98
[2021-01-04] MEDS: Buprenorphine HCl 2 MG TAB.SUBL SL (15:52)
[2021-01-04 22:13] VITALS: BP 104/67; PULSE 81; RESP 16; TEMP 37.2; O2SAT 97
[2021-01-04] MEDS: traZODone 100 MG Tablet PO (22:28)
[2021-01-04] MEDS: cloNIDine HCl 0.1 MG Tablet PO (22:29)
[2021-01-05] MEDS: Buprenorphine HCl 2 MG TAB.SUBL SL ×4 (00:21→23:06)
[2021-01-05 03:30] VITALS: BP 95/66; PULSE 71; RESP 14; TEMP 37.3; O2SAT 100
[2021-01-05 07:40] VITALS: O2SAT 98
[2021-01-05] MEDS: Methocarbamol 750 MG Tablet 1500 MG PO ×2 (07:47→18:45)
[2021-01-05] MEDS: Gabapentin 300 MG Capsule PO ×2 (07:47→18:45)
[2021-01-05] MEDS: Dicyclomine 10 MG Capsule 20 MG PO ×2 (07:47→18:45)
[2021-01-05] MEDS: hydrOXYzine PAM 25 MG Capsule 50 MG PO ×2 (07:47→18:45)
[2021-01-05 07:53] VITALS: BP 105/84; PULSE 74; RESP 16; TEMP 37.2; O2SAT 100
--- NOTE | 2021-01-05 09:17 | PCM.PN.HOSP ---
Subjective Subjective Patient states her symptoms are better in the last 24 hours. She still is complaining of some body aching. Diarrhea has improved. Nausea has improved. No further diaphoresis. Objective Data Objective Data Vital Signs: Vital Signs Temp Pulse Resp BP Pulse Ox 98.9 F 74 16 105/84 H 100 01/05/21 07:53 01/05/21 07:53 01/05/21 07:53 01/05/21 07:53 01/05/21 07:53 Oxygen Delivery Method Room Air Weight: 67.8 kg Body Mass Index (BMI) 23.3 Intake & Output: Intake and Output for Last 24 Hours 01/03/21 01/04/21 01/05/21 23:59 23:59 23:59 Intake Total 1800 / 1800 Balance 1800 / 1800 Medical Nutrition Assessment Dietitian: Malnutrition Criteria Met Start: 01/04/21 12:36 Freq: Status: Active Protocol: Document 01/04/21 12:36 RMA (Rec: 01/04/21 12:36 RMA [id number]) Nutrition Malnutrition Evidence of Malnutrition Exists Yes Malnutrition (severe): Social/Behavioral/ Environmental Evidenced By Suboptimal Energy Intake ( Severe),Weight Loss (Severe) Clinical Problem Chronic Disease or Condition Related Malnutrition Etiology Severe protein-calorie malnutrition in the context of social/behavioral circumstance related to polysubstance abuse and poor appetite/intake Signs/Symptoms as evidenced by 17% wt loss x past 8-10 months and meeting less than 50% estimated nutrition needs x past 6-12 months per pt report. Status Active Problem Recommendation Dietitian Recommendations/Changes Continue regular diet and 3 snacks daily as ordered. Will add ice cream w/ meals as per pt request. Lab / Micro Data Result Diagrams: 01/03/21 18:40 01/03/21 18:40 Micro: Microbiology 01/03/21 19:50 Nasal Secretion SARS-CoV-2 Antigen (Rapid) - Final Physical Exam Const alert, oriented x3, no apparent distress and average body habitus Constitutional Narrative: Middle-aged white female sitting up in bed getting ready breakfast, appears more comfortable this morning, nontoxic Exam Limitations: no limitations HEENT head/scalp atraumatic Head and Scalp: normocephalic Resp normal respiratory effort, no retractions, no use of accessory muscles and clear to auscultation bilaterally Auscultation: Negative for crackles, rales, rhonchi or wheezes Cardio regular rate, regular rhythm, S1 normal heart sound, S2 normal heart sound, no murmurs, no rub, no gallops, no clicks and no JVD GI normal to inspection, nondistended, normoactive bowel sounds, soft to palpation, non-tender and non-distended Extremity no clubbing, cyanosis or edema Peripheral Pulses: Yes pulses 2+ throughout Neuro oriented x3 and moves all extremities Sensorium / Orientation: awake and alert Speech: speech normal Psych Psych Narrative: Much more interactive today Assessment & Plan Assessment/Plan (1) Opiate withdrawal: PLAN: Acute opiate withdrawal -Patient admits to intranasal/IV fentanyl abuse of approximately 1 g daily -Last dose was 3:30 PM the day prior to admission -Continue buprenorphine taper -Continue supportive medications -180 following--> note is not yet on the chart we will check the physical chart on the floor to see if plan has been documented there -Anticipate discharge in the next 24 to 48 hours Polysubstance abuse -Patient admits to methamphetamine and fentanyl abuse -Tox screen was positive for amphetamines on admission -HIV is negative -Hepatitis screen remains pending Normocytic anemia -Hemoglobin mildly low on presentation at 11.9 with lower range of normal being 12.0 -Recommend outpatient follow-up Hyperglycemia -Blood sugar 149 on presentation but this was not a fasting blood sugar -Suspect this may be reactive from stress as noted was not fasting -A1c was 5.2 Tobacco abuse -Continue cessation -Nicotine replacement DVT prophylaxis -Low risk Charges/Coding Visit Charges Inpatient E&M: 72881 Subs Hosp L2
[2021-01-05 15:53] VITALS: BP 98/70; PULSE 70; RESP 16; TEMP 37; O2SAT 100
[2021-01-05] MEDS: Ibuprofen 600 MG Tablet PO (18:45)
[2021-01-05 23:00] VITALS: BP 91/63; PULSE 64; RESP 16; TEMP 36.9; O2SAT 97
[2021-01-05] MEDS: traZODone 100 MG Tablet PO (23:06)
[2021-01-06 03:04] VITALS: BP 85/45; PULSE 71; RESP 16; TEMP 36.7; O2SAT 98
[2021-01-06] MEDS: hydrOXYzine PAM 25 MG Capsule 50 MG PO ×2 (03:08→11:55)
[2021-01-06] MEDS: Methocarbamol 750 MG Tablet 1500 MG PO ×2 (03:08→11:55)
[2021-01-06] MEDS: Ibuprofen 600 MG Tablet PO ×2 (08:28→16:42)
[2021-01-06] MEDS: Buprenorphine HCl 2 MG TAB.SUBL SL ×2 (08:29→16:42)
[2021-01-06 08:44] VITALS: O2SAT 98
[2021-01-06 08:54] VITALS: BP 92/60; PULSE 76; RESP 18; TEMP 36.7; O2SAT 97
--- NOTE | 2021-01-06 11:30 | PCM.PN.HOSP ---
Subjective Subjective Patient is still complaining of body aches and intermittent chills. Overall she appears much better and does admit she is improved. Plan is for inpatient drug rehab at discharge. Objective Data Objective Data Vital Signs: Vital Signs Temp Pulse Resp BP Pulse Ox 98.0 F 76 18 92/60 97 01/06/21 08:54 01/06/21 08:54 01/06/21 08:54 01/06/21 08:54 01/06/21 08:54 Oxygen Delivery Method Room Air Weight: 67.8 kg Body Mass Index (BMI) 23.3 Intake & Output: Intake and Output for Last 24 Hours 01/04/21 01/05/21 01/06/21 23:59 23:59 23:59 Intake Total 1800 / 1800 1650 / 1650 Balance 1800 / 1800 1650 / 1650 Medical Nutrition Assessment Dietitian: Malnutrition Criteria Met Start: 01/04/21 12:36 Freq: Status: Active Protocol: Document 01/04/21 12:36 RMA (Rec: 01/04/21 12:36 RMA [id number]) Nutrition Malnutrition Evidence of Malnutrition Exists Yes Malnutrition (severe): Social/Behavioral/ Environmental Evidenced By Suboptimal Energy Intake ( Severe),Weight Loss (Severe) Clinical Problem Chronic Disease or Condition Related Malnutrition Etiology Severe protein-calorie malnutrition in the context of social/behavioral circumstance related to polysubstance abuse and poor appetite/intake Signs/Symptoms as evidenced by 17% wt loss x past 8-10 months and meeting less than 50% estimated nutrition needs x past 6-12 months per pt report. Status Active Problem Recommendation Dietitian Recommendations/Changes Continue regular diet and 3 snacks daily as ordered. Will add ice cream w/ meals as per pt request. Lab / Micro Data Result Diagrams: 01/03/21 18:40 01/03/21 18:40 Micro: Microbiology 01/03/21 19:50 Nasal Secretion SARS-CoV-2 Antigen (Rapid) - Final Physical Exam Const alert, oriented x3, no apparent distress and average body habitus Constitutional Narrative: Middle-aged white female sitting up in bed watching television, appears comfortable, nontoxic Exam Limitations: no limitations HEENT head/scalp atraumatic Head and Scalp: normocephalic Resp normal respiratory effort, no retractions, no use of accessory muscles and clear to auscultation bilaterally Auscultation: Negative for crackles, rales, rhonchi or wheezes Cardio regular rate, regular rhythm, S1 normal heart sound, S2 normal heart sound, no murmurs, no rub, no gallops, no clicks and no JVD GI normal to inspection, nondistended, normoactive bowel sounds, soft to palpation, non-tender and non-distended Extremity no clubbing, cyanosis or edema Neuro oriented x3 and moves all extremities Sensorium / Orientation: awake and alert Speech: speech normal Psych Psych Narrative: Mildly withdrawn but interacts appropriately Assessment & Plan Assessment/Plan (1) Opiate withdrawal: PLAN: Acute opiate withdrawal -Patient admits to intranasal/IV fentanyl abuse of approximately 1 g daily -Last use was 3:30 PM the day prior to admission -Continue buprenorphine taper--> completes taper tomorrow 01/07/2021 -Continue supportive medications -180 following--> plan for discharge tomorrow to inpatient rehab Polysubstance abuse -Patient admits to methamphetamine and fentanyl abuse -Tox screen was positive for amphetamines on admission -HIV is negative -Hepatitis screen remains pending Normocytic anemia -Hemoglobin mildly low on presentation at 11.9 with lower range of normal being 12.0 -Recommend outpatient follow-up Hyperglycemia -Blood sugar 149 on presentation but this was not a fasting blood sugar -Suspect this may be reactive from stress as noted was not fasting -A1c was 5.2 Tobacco abuse -Continue cessation -Nicotine replacement DVT prophylaxis -Low risk Charges/Coding Visit Charges Inpatient E&M: 83630 Subs Hosp L2
[2021-01-06] MEDS: Acetaminophen 325 MG Tablet 650 MG PO ×2 (11:55→16:42)
--- NOTE | 2021-01-06 12:14 | ADDICTION ---
TW met with PT to inform her of her discharge on 01/08/2021 and she will be transported to residential treatment by [facility] staff Josef Bonilla. 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 Pt asked relevant questions, TW answered questions and offered supportive counseling.
[2021-01-06 15:00] VITALS: BP 91/59; PULSE 89; RESP 16; TEMP 36.7; O2SAT 96
--- NOTE | 2021-01-06 20:10 | NURSING ---
I walked into pt's room and she was walking out of the bathroom. She said I'm leaving. I just can't do this. I had her sign AMA form and called security to walk her out. Pt had already broken into her crate and took her personal belongings out.
--- NOTE | 2021-01-06 20:17 | NURSING ---
Security is walking pt out at this time. Josef from [facility] was here on [facility] and is aware pt is leaving.
--- NOTE | 2021-01-06 20:59 | PCM.HOSP.N ---
Hospitalist Note Notified by Megha GARCIA that patient is wanting to leave AMA. Patient stated I cannot do this anymore I am leaving. Per Megha, RN report patient had already opened crate of personal belongings and was dressed and ready to leave. Patient cooperative, signed AMA paper and was escorted out by security. Dr. Ramos also notified.
[2021-01-07 22:45] LABS: HEPATITIS B SURFACE AG Negative (Negative); Hep B Surface Antibodies Reactive (.); Hepatitis B Core Ab Total Negative (Negative); Hepatitis C Ab <0.1 s/co ratio (0.0-0.9)
== END 2021-01-06 20:21 | disposition left against medical advice (07) | DRG 770 ==
LOC: ED 19:54 → MS3 21:33
PROVIDERS: Admitting Provider Family Medicine; Emergency Provider Emergency Medicine; Visit Provider Internal Medicine
DX: F11.23 Opioid dependence with withdrawal (principal); F17.210 Nicotine dependence, cigarettes, uncomplicated; R73.9 Hyperglycemia, unspecified; D64.9 Anemia, unspecified; F15.10 Other stimulant abuse, uncomplicated
CPT/HCPCS: 80053; 80307; 81001; 82077; 83036; 83690; 84703; 85025; 86703; 86704; 86705; 86706; 86707; 86803; 87340; 87350; 87426; 99283; 99406